=== PATIENT | female | born 1995 | race Caucasian/White ===

== ENCOUNTER 2019-04-16 15:19 | Outpatient (CLI) | payer BC ==
--- NOTE | 2019-04-16 16:03 | RAD ---
Exam: 1 view abdomen HISTORY: Epigastric pain. Altered bowel function. FINDINGS: Nonspecific bowel gas pattern. No suspicious densities in the abdomen or pelvis. No pneumop eritoneum on supine projection. No osseous abnormalities IMPRESSION: Nonspecific bowel gas pattern.
== END 2019-04-16 15:20 | disposition home or self-care (01) ==
LOC: BICRAD 15:19
PROVIDERS: ATTEND Internal Medicine Gastroenterology
DX: K92.1 Melena (principal); R10.13 Epigastric pain; R19.4 Change in bowel habit
CPT/HCPCS: 74018

== ENCOUNTER 2019-05-08 07:31 | Outpatient (CLI) | payer BC ==
--- NOTE | 2019-05-08 08:18 | ULT ---
GALLBLADDER ULTRASOUND: HISTORY: Right upper quadrant abdominal pain FINDINGS: The liver demonstrates a 2 cm nonshadowing echogenic lesion in the right lobe of the liver without in trahepatic biliary ductal dilatation. No gallstones, gallbladder wall thickening or pericholecystic fluid are seen. The right kidney and visualized portions of the pancreas are normal. The common duct [id number] in diameter. No free fluid is seen in the Cooper's pouch. IMPRESSION: 1. Probable hemangioma in the liver. 2. No evidence cholelithiasis RECOMMENDATION: Further evaluation with technetium 99m labeled RBC scan should be performed.
== END 2019-05-08 07:32 | disposition home or self-care (01) ==
LOC: ULT 07:31
DX: R11.0 Nausea (principal)
CPT/HCPCS: 76705